=== PATIENT | male | born 1950 | race Caucasian/White ===

== ENCOUNTER 2024-03-10 09:23 | Emergency (ER) | payer OTHER, SELFPAY ==
[2024-03-10 09:32] VITALS: BP 180/79
[2024-03-10 10:02] VITALS: BP 156/64
--- NOTE | 2024-03-10 10:13 | ED.GENMED ---
History of Present Illness
General
Chief Complaint: Chest Problem
Source: patient
Exam Limitations: none
Time Seen by Provider: 03/10/24 10:05
History of Present Illness
History of Present Illness:
See MDM
Past History
Past History
ED Past Medical History: Arrthythmia (Atrial fib), HTN and Other (Kidney stones)
ED Past Surgical History: Cardiac (Ablation X2) and Cholecystectomy
Social History
Tobacco: Former smoker
Alcohol: Occasional
Drug: None
Personal:
Living: with family
Phy Exam
Physical Exam
Physical Exam:
See MDM
Course
Orders/Labs/Results
Orders:
Orders
03/10/24 09:29
EKG [Electrocardiogram (*1)] Urgent
Reason for Study: Atrial Fibrillation
EKG- Treatment ONCE
03/10/24 10:04
CMP [Comprehensive Metabolic Panel] Urgent
Complete Blood Count/With Diff Urgent
Lipase Urgent
Troponin I Urgent
Abnormal Lab Results
03/10/24
10:04
MPV 10.6 H fL
(7.4-10.4)
Absolute Neuts (auto) 7.1 H 10^3/uL
(1.4-6.5)
Absolute Lymphs (auto) 0.9 L 10^3/uL
(1.2-3.4)
Absolute Monos (auto) 0.7 H 10^3/uL
(0.1-0.6)
Neutrophils % 79.7 H %
(42.2-75.2)
Lymphocytes % 10.0 L %
(20.5-51.1)
Glucose 149 H mg/dl
(70-99)
03/10/24 10:04
03/10/24 10:04
Vital Signs
Initial and Last Documented VS:
Initial Vital Signs
Temp Pulse Resp BP Pulse Ox
99.7 F 68 18 180/79 97
03/10/24 09:32 03/10/24 09:32 03/10/24 09:32 03/10/24 09:32 03/10/24 09:32
Last Documented Vital Signs
Temp Pulse Resp BP Pulse Ox
99.7 F 59 14 165/77 95
03/10/24 09:32 03/10/24 11:15 03/10/24 11:15 03/10/24 11:05 03/10/24 11:15
MDM/Problems Addressed
Differential Diagnosis Includes:
HPI and MDM Narrative:
73-year-old male presenting with resolved flushed sensation in his face. This occurred a few hours ago. Patient states he woke up and took his normal medications. He was sitting at his desk and felt a flushed sensation and both cheeks. Family at
bedside indicate that he was bright red. This was associated with a mild chest discomfort. The chest discomfort did not get worse with exertion. Patient states he went to make sure he was not in A-fib. Patient currently in a sinus rhythm but
also symptom-free.
I question whether or not patient was on hydralazine. Patient does acknowledge that he has had the same hydralazine dosage for many years.
Will obtain basic blood work to rule out any electrolyte abnormalities or cardiac events. I discussed having his blood pressure medications reassessed and keep an eye if this is a recurring issue after hydralazine. I also discussed less common and
rare disorders such as pheochromocytoma and to have this evaluated by PCP.
Physical exam
General: Well appearing and non-toxic
HEENT: protecting airway
Neck: appears supple
CV: No evidence of cyanosis. Regular rate and rhythm
Resp: No accessory muscle use. Lungs clear
Abd: Non-distended
Extremities: No deformities
Neuro: alert
Psych: Normal affect
Skin: Intact
Problems Addressed including Acute and Chronic Conditions affecting care:
1. Resolved facial flushing
Acuity: acute
Prognosis: stable
Details: Likely adverse medication reaction. No evidence of A-fib. Will obtain basic blood
Updates
Patient has remained in sinus rhythm here. We discussed keeping an eye on his symptoms and see if there is a pattern with hydralazine intake. Discussed outpatient follow-up
Differential Diagnosis (but not limited to): Hydralazine side effect, pheochromocytoma, A-fib
Testing considered: D-dimer but he is on Eliquis
Drug therapy (if applicable): OTC meds, please see d/c instruction regarding Rx drugs
Amount and/or Complexity of Data Reviewed
Clinical info obtained from: Patient
External data reviewed: N/A
Labs I independently reviewed (but not limited to): Troponin normal
Radiology: N/A
Pulse Ox: not hypoxic
EKG independently reviewed: Sinus rhythm, normal axis, no STEMI
Parts Runner: Sinus rhythm
Critical Care: N/A
Risk of Complication:
Social Determinants of health: Good social support
Discussed with other providers: N/A
Escalation of Care includes Admit/Obs: After being observed in the Emergency Department, pt stable for discharge.
Occasional wrong word or 'sound a like' substitutions may have occurred due to the inherent limitations of voice recognition software. Read the chart carefully and recognize, using context, where substitutions have occurred.
*Critical Care Note
Total Time (30-74mins, 75-104mins- exclusive of procedures): Not Applicable
ED Attending Note
-
Portions of this chart may have been created with voice recognition software.� Occasional wrong word or��sound alike� substitutions may have occurred due to the inherent limitations of voice recognition software.
Discharge Plan
Departure
Patient Disposition: Home (Routine Discharge)
Date of Disposition: 03/10/24
Time of Disposition: 11:48
Patient with high blood pressure during this ER visit?: Yes
Discharge Problem:
Facial flushing
Prescriptions:
No Action
albuterol sulfate [ProAir RespiClick] 90 MCG aerosol powdr breath activated
90 mcg IH R BIDPRN PRN (Reason: sob)
furosemide 40 MG tablet
80 mg PO DAILY
nystatin 1 APPLIC cream
1 applic TP DAILYPRN PRN (Reason: althletes foot)
valsartan [Diovan] 320 MG tablet
320 mg PO HS
hydralazine 50 MG tablet
50 mg PO TID
fluticasone propionate 1 SPRAY spray,suspension
1 spray intranasal DAILYPRN PRN (Reason: congestion)
escitalopram oxalate 10 MG tablet
10 mg PO HS
metoprolol succinate 100 MG tablet extended release 24 hr
50 mg PO HS
diltiazem HCl 120 MG capsule,extended release 24hr
120 mg PO DAILY 0RF
Eliquis:
5 mg PO BID
potassium chloride [Klor-Con M20] 20 MEQ tablet,ER particles/crystals
20 meq PO BID Qty: 60 11RF
Rx Instructions:
Increase potassium to 20 meq twice a day
dofetilide 250 MCG capsule
250 mcg PO Q12 Qty: 60 11RF
Referrals:
Steven Genao Jr., DO [Family Provider] -
Activity Restrictions/Additional Instructions:
Please return for any worsening symptoms.
You may return at any time if you have further concerns.
Please follow up with your doctor at the first available appointment, preferably this week. Please discuss your symptoms with your doctor and try and find a pattern. It is possible that hydralazine could be the issue. Although less likely, there
are other diagnoses such as something called pheochromocytoma. Please talk to your doctor about your symptoms and if the symptoms keep happening.
Thank you for choosing [facility].
Interventions
Interventions:
*Risk Screen - Suicide Last Done: 03/10/24 09:51
*General Assessment Last Done: 03/10/24 09:52
*Neglect/Abuse Screening Last Done: 03/10/24 09:51
ED- Fall Risk Assessment Last Done: 03/10/24 10:11
ED- Cardiac Assessment Last Done: 03/10/24 10:11
ED- Pulmonary Assessment Last Done: 03/10/24 10:11
Discharge Date and Time
Print Language: SERBIAN
[2024-03-10 10:32] LABS: ALT (SGPT) 21 U/L (0-50); AST (SGOT) 27 U/L (17-59); Albumin 4.5 g/dl (3.5-5.0); Alkaline Phosphatase 66 U/L (38-126); Blood Urea Nitrogen 19 mg/dl (9-20); Calcium 9.1 mg/dl (8.4-10.2); Carbon Dioxide 30 mmol/L (22-30); Chloride 102 mmol/L (98-107); Glucose 149 mg/dl (70-99); Lipase 126 U/L (23-300); Potassium 3.6 mmol/L (3.5-5.1); Sodium 140 mmol/L (135-145); Total Bilirubin 1.2 mg/dl (0.2-1.3); Total Protein 7.2 g/dl (6.3-8.2); eGFR > 60.00
[2024-03-10 10:37] LABS: Troponin I < 0.012 ng/ml
[2024-03-10 11:05] VITALS: BP 165/77
[2024-03-10 11:23] LABS: % Basophils 0.8 % (0-2); % Eosinophils 0.8 % (0-6); % Immature Granulocytes 0.5 % (0-0.5); % Monocytes 8.2 % (1.7-9.3); % Neutrophils 79.7 % (42.2-75.2); Absolute Basophils 0.1 10^3/uL (0-0.2); Absolute Eosinophils 0.1 10^3/uL (0-0.7); Absolute Lymphocytes 0.9 10^3/uL (1.2-3.4); Absolute Monocytes 0.7 10^3/uL (0.1-0.6); Absolute Neutrophils 7.1 10^3/uL (1.4-6.5); Hematocrit 44.6 % (39.0-52.0); Hemoglobin 15.6 g/dL (13.0-18.0); Mean Corpuscular Hgb 29.3 pg (27.0-31.0); Mean Corpuscular Volume 83.8 fL (80.0-94.0); Mean Platelet Volume 10.6 fL (7.4-10.4); Nucleated Red Blood Cells % 0 % (-); Platelet Count 261 10^3/uL (130-400); Red Blood Cell Count 5.32 10^6/uL (4.70-6.10); Red Cell Dist. Width 13.2 % (11.5-14.5); White Blood Cell Count 8.9 10^3/uL (4.8-10.8)
== END 2024-03-10 11:53 | disposition home or self-care (01) ==
LOC: EMR 09:23
PROVIDERS: EMERGENCY PHYSICIAN Student in an Organized Health Care Education/Training Program; FAMILY PHYSICIAN Family Medicine
DX: R23.2 Flushing (principal); R07.89 Other chest pain; I48.91 Unspecified atrial fibrillation; I10 Essential (primary) hypertension; Z79.01 Long term (current) use of anticoagulants; Z87.442 Personal history of urinary calculi; Z87.891 Personal history of nicotine dependence; Z90.49 Acquired absence of other specified parts of digestive tract; Z88.8 Allergy status to other drugs, medicaments and biological substances; Z91.041 Radiographic dye allergy status
CPT/HCPCS: 99283; 80053; 83690; 84484; 85025; 93005

== ENCOUNTER → 2024-03-29 07:13 | Outpatient (REF) | payer OTHER, SELFPAY ==
[2024-03-29 10:14] LABS: ALT (SGPT) 20 U/L (0-50); AST (SGOT) 25 U/L (17-59); Albumin 3.9 g/dl (3.5-5.0); Alkaline Phosphatase 63 U/L (38-126); Blood Urea Nitrogen 15 mg/dl (9-20); Calcium 9.4 mg/dl (8.4-10.2); Carbon Dioxide 30 mmol/L (22-30); Chloride 102 mmol/L (98-107); Glucose 105 mg/dl (70-99); HDL Cholesterol 38 mg/dl; LDL Cholesterol, Calculated 69 mg/dl; Sodium 139 mmol/L (135-145); Total Bilirubin 1.5 mg/dl (0.2-1.3); Total Cholesterol 116 mg/dl (50-199); Total Protein 6.4 g/dl (6.3-8.2); Triglyceride 48 mg/dl (10-149); Very Low Density Lipoprotein 9 mg/dl (0-30); eGFR > 60.00
[2024-03-29 15:29] LABS: Glycohemoglobin (HgbA1c) 5.9 % (4.0-5.6)
== END ==
LOC: REG 07:13
PROVIDERS: ATTENDING PHYSICIAN Family Medicine
DX: R73.03 Prediabetes (principal); E78.2 Mixed hyperlipidemia
CPT/HCPCS: 36415; 80053; 80061; 83036

== ENCOUNTER → 2024-04-21 06:36 | Outpatient (REF) | payer OTHER, SELFPAY ==
[2024-04-21 08:51] LABS: TSH Reflex To Free T4 9.03 uIU/ml (0.47-4.68)
[2024-04-21 09:21] LABS: Free T4 0.78 ng/dl (0.78-2.19)
== END ==
LOC: REG 06:36
PROVIDERS: ATTENDING PHYSICIAN Family Medicine
DX: I48.0 Paroxysmal atrial fibrillation (principal); I10 Essential (primary) hypertension; R23.2 Flushing
CPT/HCPCS: 36415; 82384; 83835; 84439; 84443

== ENCOUNTER → 2024-05-09 15:37 | Outpatient (REF) | payer OTHER, SELFPAY | LOC: HWRAD 15:37 | PROVIDERS: ATTENDING PHYSICIAN Internal Medicine | DX: R41.3 Other amnesia (principal) | CPT/HCPCS: 70450 ==

== ENCOUNTER → 2024-05-10 07:02 | Outpatient (REF) | payer OTHER, SELFPAY ==
[2024-05-10 08:58] LABS: % Basophils 1.1 % (0-2); % Eosinophils 3.7 % (0-6); % Immature Granulocytes 0.9 % (0-0.5); % Lymphocytes 21.5 % (20.5-51.1); % Monocytes 11.7 % (1.7-9.3); % Neutrophils 61.1 % (42.2-75.2); Absolute Basophils 0.1 10^3/uL (0-0.2); Absolute Eosinophils 0.3 10^3/uL (0-0.7); Absolute Immature Granulocytes 0.1 10^3/uL (0-0.05); Absolute Lymphocytes 1.5 10^3/uL (1.2-3.4); Absolute Monocytes 0.8 10^3/uL (0.1-0.6); Absolute Neutrophils 4.3 10^3/uL (1.4-6.5); Hematocrit 41.4 % (39.0-52.0); Hemoglobin 14.1 g/dL (13.0-18.0); Mean Corp Hgb Conc. 34.1 g/dL (33.0-37.0); Mean Corpuscular Hgb 29.2 pg (27.0-31.0); Mean Corpuscular Volume 85.7 fL (80.0-94.0); Mean Platelet Volume 10.3 fL (7.4-10.4); Nucleated Red Blood Cells % 0 % (-); Platelet Count 232 10^3/uL (130-400); Red Blood Cell Count 4.83 10^6/uL (4.70-6.10); Red Cell Dist. Width 13.2 % (11.5-14.5)
[2024-05-10 09:47] LABS: TSH Reflex To Free T4 6.57 uIU/ml (0.47-4.68)
[2024-05-10 10:14] LABS: Free T4 0.85 ng/dl (0.78-2.19)
[2024-05-10 10:23] LABS: Folate 11.5 ng/ml (2.76-20); Vitamin B12 262 pg/ml (239-931)
[2024-05-11 20:21] LABS: Thyroglobulin Antibodies <0.9 IU/mL (0.0-4.0); Thyroid Peroxidase Ab (TPO) <0.3 IU/mL (0.0-9.0)
== END ==
LOC: REG 07:02
PROVIDERS: ATTENDING PHYSICIAN Family Medicine
DX: R41.3 Other amnesia (principal); I48.0 Paroxysmal atrial fibrillation; D68.69 Other thrombophilia; R79.89 Other specified abnormal findings of blood chemistry; G47.33 Obstructive sleep apnea (adult) (pediatric); I50.32 Chronic diastolic (congestive) heart failure; F32.A Depression, unspecified; E53.8 Deficiency of other specified B group vitamins
CPT/HCPCS: 36415; 82607; 82746; 84439; 84443; 85025; 86376; 86800

== ENCOUNTER → 2024-08-09 07:03 | Outpatient (REF) | payer OTHER, SELFPAY ==
[2024-08-09 09:18] LABS: Vitamin B12 425 pg/ml (239-931)
== END ==
LOC: REG 07:03
PROVIDERS: ATTENDING PHYSICIAN Internal Medicine; FAMILY PHYSICIAN Family Medicine
DX: E53.8 Deficiency of other specified B group vitamins (principal)
CPT/HCPCS: 36415; 82607

== ENCOUNTER → 2025-04-04 07:06 | Outpatient (REF) | payer OTHER, SELFPAY ==
[2025-04-04 07:48] LABS: Hematocrit 42.6 % (39.0-52.0); Hemoglobin 14.5 g/dL (13.0-18.0); Mean Corp Hgb Conc. 34.0 g/dL (33.0-37.0); Mean Corpuscular Volume 86.6 fL (80.0-94.0); Nucleated Red Blood Cells % 0 % (-); Platelet Count 209 10^3/uL (130-400); Red Cell Dist. Width 13.1 % (11.5-14.5)
[2025-04-04 08:16] LABS: ALT (SGPT) 24 U/L (0-50); AST (SGOT) 25 U/L (17-59); Albumin 4.0 g/dl (3.5-5.0); Alkaline Phosphatase 60 U/L (38-126); Blood Urea Nitrogen 12 mg/dl (9-20); Calcium 9.2 mg/dl (8.4-10.2); Carbon Dioxide 30 mmol/L (22-30); Chloride 107 mmol/L (98-107); Glucose 115 mg/dl (70-99); HDL Cholesterol 36 mg/dl; LDL Cholesterol, Calculated 86 mg/dl; Potassium 4.0 mmol/L (3.5-5.1); Sodium 142 mmol/L (135-145); Total Protein 6.5 g/dl (6.3-8.2); Very Low Density Lipoprotein 9 mg/dl (0-30); eGFR > 60.00
[2025-04-04 09:00] LABS: Glycohemoglobin (HgbA1c) 6.0 % (4.0-5.6)
== END ==
LOC: REG 07:06
PROVIDERS: ATTENDING PHYSICIAN Family Medicine
DX: R73.03 Prediabetes (principal); E78.2 Mixed hyperlipidemia; E03.8 Other specified hypothyroidism; R53.83 Other fatigue; Z12.5 Encounter for screening for malignant neoplasm of prostate
CPT/HCPCS: 36415; 80053; 80061; 83036; 84153; 84154; 84439; 84443; 85025

== ENCOUNTER 2025-04-27 17:09 | Emergency (ER) | payer OTHER, SELFPAY ==
[2025-04-27] VITALS (17 sets, daily range): BP systolic 99–166; BP diastolic 54–111; BMI 39.1
[2025-04-27 17:49] LABS: Hematocrit 45.0 % (39.0-52.0); Hemoglobin 15.5 g/dL (13.0-18.0); Mean Corp Hgb Conc. 34.4 g/dL (33.0-37.0); Mean Corpuscular Volume 84.4 fL (80.0-94.0); Nucleated Red Blood Cells % 0 % (-); Platelet Count 208 10^3/uL (130-400); Red Cell Dist. Width 13.1 % (11.5-14.5)
--- NOTE | 2025-04-27 17:50 | ED.GENMED ---
History of Present Illness
General
Chief Complaint: Heart Rate Problem
Source: patient and spouse
Time Seen by Provider: 04/27/25 17:38
History of Present Illness
History of Present Illness:
74-year-old male presents to the emergency room complaining of palpitations and rapid heartbeat. He has a history of atrial fibrillation. He is known to Dr. Chaz Burkett. He has had an ablation twice in the past. Last ablation was about 5 years
ago or more. He is prescribed Xarelto. He has been compliant with his Xarelto and has not missed any doses. He denies any chest pain.
Past History
Past History
ED Past Medical History: Arrthythmia (Atrial fib), HTN and Other (Kidney stones)
ED Past Surgical History: Cardiac (Ablation X2) and Cholecystectomy
Social History
Tobacco: Former smoker
Alcohol: Occasional
Drug: None
Personal:
Living: with family
Phy Exam
Physical Exam
Physical Exam:
General: Awake, Alert, Oriented X3. No acute distress.
Vitals: unremarkable
Head: Atraumatic
Eyes: Pupils equal, EOMI
Throat: Airway intact, no exudates
Neck: Trachea midline
Lungs: Clear and equal b/l
Heart: Tachycardic, irregular rate, no murmurs
Abd: Soft, Nontender, No pulsatile mass
Neuro: Nonfocal
Skin: Warm, dry, no rash
Extremities: pulses equal b/l, no edema
Course
Orders/Labs/Results
Orders:
Orders
04/27/25 17:10
ECG [Electrocardiogram (*1)] Urgent
Reason for Study: Atrial Fibrillation
EKG- Treatment ONCE
04/27/25 17:24
IV Insert/Care/Rem.- Treatment PRN
04/27/25 17:41
EKG [Electrocardiogram (*1)] Urgent
Reason for Study: Atrial Flutter
04/27/25 17:42
EKG- Treatment ONCE
Basic Metabolic Panel Urgent
Complete Blood Count/With Diff Urgent
04/27/25 18:22
Propofol [Diprivan] 40 ml .ROUTE .STK-MED
Abnormal Lab Results
04/27/25
17:42
Lymphocytes % 19.7 L %
(20.5-51.1)
Chloride 109 H mmol/L
(98-107)
Glucose 130 H mg/dl
(70-99)
04/27/25 17:42
04/27/25 17:42
Vital Signs
Initial and Last Documented VS:
Initial Vital Signs
Temp Pulse Resp BP Pulse Ox
98.1 F 104 19 157/111 97
04/27/25 17:13 04/27/25 17:13 04/27/25 17:13 04/27/25 17:13 04/27/25 17:13
Last Documented Vital Signs
Temp Pulse Resp BP Pulse Ox
98.2 F 64 19 106/67 96
04/27/25 19:30 04/27/25 19:45 04/27/25 19:45 04/27/25 19:30 04/27/25 19:45
Procedures
Cardioversion
Indication:: Afib
Synchronized?: Yes
Energy Used: 200 joules
Successful?: Yes
ASA Risk Score: Class II
Any reaction or bad outcome to prior sedation/anesthesia?: No history of a reaction
Sedation level to be attained: moderate
Chart and allergies reviewed: Yes
Patient reassessed prior to sedation: Yes
Time out completed at (validating right patient & procedure): 19:43
History of difficult intubation: No
Airway free of obstruction: Yes
Patient has a gag reflex: Yes
Patient is able to open mouth: Yes
Patient has no dentures: Yes
Patient has no loose teeth: Yes
Medication administered by Provider during Moderate Sedation: IV Propofol (mg)
Total dose administered: 80
Time drug administered: 19:44
Start Time: 19:44
Stop Time: 19:54
MDM/Problems Addressed
Differential Diagnosis Includes:
A flutter, atrial fibrillation, SVT with frequent PACs
MDM/Problems Addressed:
Patient presents with palpitations and tachycardia. EKG shows A-fib and a flutter. Patient takes Xarelto and has been compliant with it. He is sure he has not missed any doses. Therefore we proceeded to cardioversion. Patient tolerated the
procedure well. He cardioverted to normal sinus rhythm. He returned to baseline after sedation and was stable for discharge.
Chronic conditions affecting care: Arrhythmia (Atrial fibrillation)
*Pulse Oximetry
SaO2: 97
Oxygen Mode of Delivery: Room air
Patient hypoxic: no
*EKG
Interpreted by ED Provider?: Yes
Interpretation: normal
Heart Rate: 143
Rate: tachycardiac
Rhythm: a-fib
Donald: normal axis
Interval: normal interval
QRS Pattern: normal QRS
Ischemia: non-specific ST changes
*Water Resources Engineer Interpretation
Rate: tachycardiac
Interpretation: abnormal
Heart Rate: 143
Rhythm: a-fib
*Critical Care Note
Total Time (30-74mins, 75-104mins- exclusive of procedures): Not Applicable
ED Attending Note
-
Portions of this chart may have been created with voice recognition software.� Occasional wrong word or��sound alike� substitutions may have occurred due to the inherent limitations of voice recognition software.
Discharge Plan
Departure
Patient Disposition: Home (Routine Discharge)
Date of Disposition: 04/27/25
Time of Disposition: 19:35
Patient with high blood pressure during this ER visit?: No
Condition: Good
Discharge Problem:
Paroxysmal A-fib
Instructions: Atrial fibrillation (DC), Sedation for procedures in adults - ED (DC)
Prescriptions:
No Action
albuterol sulfate [ProAir RespiClick] 90 MCG aerosol powdr breath activated
90 mcg IH R BIDPRN PRN (Reason: sob)
furosemide 40 MG tablet
80 mg PO DAILY
nystatin 1 APPLIC cream
1 applic TP DAILYPRN PRN (Reason: althletes foot)
valsartan [Diovan] 320 MG tablet
320 mg PO HS
hydralazine 50 MG tablet
50 mg PO TID
fluticasone propionate 1 SPRAY spray,suspension
1 spray intranasal DAILYPRN PRN (Reason: congestion)
escitalopram oxalate 10 MG tablet
10 mg PO HS
metoprolol succinate 100 MG tablet extended release 24 hr
50 mg PO HS
diltiazem HCl 120 MG capsule,extended release 24hr
120 mg PO DAILY 0RF
Eliquis:
5 mg PO BID
potassium chloride [Klor-Con M20] 20 MEQ tablet,ER particles/crystals
20 meq PO BID Qty: 60 11RF
Rx Instructions:
Increase potassium to 20 meq twice a day
dofetilide 250 MCG capsule
250 mcg PO Q12 Qty: 60 11RF
Referrals:
Chaz Burkett MD [Active, Cardiology]
UNKNOWN - PT DOES,NOT KNOW [Family Provider]
Interventions
Interventions:
*Risk Screen - Suicide Last Done: 04/27/25 17:17
*General Assessment Last Done: 04/27/25 17:17
*Neglect/Abuse Screening Last Done: 04/27/25 17:17
*ED- Fall Risk Assessment Last Done: 04/27/25 17:44
*ED COVID-19 Vaccine History Last Done: 04/27/25 17:44
*Nursing Disposition Last Done: 04/27/25 19:56
ED- Cardiac Assessment Last Done: 04/27/25 17:44
ED- Pulmonary Assessment Last Done: 04/27/25 17:44
Discharge Date and Time
Discharge Date/Time: 04/27/25 20:08
Print Language: ROMANIAN
[2025-04-27 18:11] LABS: Blood Urea Nitrogen 14 mg/dl (9-20); Calcium 9.5 mg/dl (8.4-10.2); Carbon Dioxide 24 mmol/L (22-30); Chloride 109 mmol/L (98-107); Estimated Creatinine Clearance 91 ml/min; Glucose 130 mg/dl (70-99); Sodium 140 mmol/L (135-145); eGFR > 60.00
== END 2025-04-27 20:08 | disposition home or self-care (01) ==
LOC: EMR 17:09
PROVIDERS: EMERGENCY PHYSICIAN Emergency Medicine
DX: I48.0 Paroxysmal atrial fibrillation (principal); I10 Essential (primary) hypertension; Z79.01 Long term (current) use of anticoagulants; Z87.442 Personal history of urinary calculi; Z87.891 Personal history of nicotine dependence; Z90.49 Acquired absence of other specified parts of digestive tract; Z88.8 Allergy status to other drugs, medicaments and biological substances; Z91.041 Radiographic dye allergy status
CPT/HCPCS: 92960; 99285; 99152; 80048; 85025; 93005

== ENCOUNTER → 2025-05-16 07:06 | Outpatient (REF) | payer OTHER, SELFPAY | LOC: RCS 07:06 | PROVIDERS: ATTENDING PHYSICIAN Internal Medicine Cardiovascular Disease; FAMILY PHYSICIAN Family Medicine | DX: I48.0 Paroxysmal atrial fibrillation (principal); I10 Essential (primary) hypertension; I50.32 Chronic diastolic (congestive) heart failure | CPT/HCPCS: 93306 ==

== ENCOUNTER → 2025-05-30 07:05 | Outpatient (REF) | payer OTHER, SELFPAY | LOC: REG 07:05 | PROVIDERS: ATTENDING PHYSICIAN Family Medicine | DX: R97.20 Elevated prostate specific antigen [PSA] (principal) | CPT/HCPCS: 36415; 84153; 84154 ==

== ENCOUNTER → 2025-06-06 07:26 | Outpatient (REF) | payer OTHER, SELFPAY | LOC: RAD 07:26 | PROVIDERS: ATTENDING PHYSICIAN Nurse Practitioner Adult Health; FAMILY PHYSICIAN Family Medicine | DX: M54.50 Low back pain, unspecified (principal) | CPT/HCPCS: 72110 ==

== ENCOUNTER → 2025-07-17 11:11 | Outpatient (REF) | payer OTHER, SELFPAY | LOC: CLAB 11:11 | PROVIDERS: ATTENDING PHYSICIAN Nurse Practitioner Adult Health | DX: R39.9 Unspecified symptoms and signs involving the genitourinary system (principal) | CPT/HCPCS: 87086 ==

== ENCOUNTER → 2025-07-18 07:25 | Outpatient (REF) | payer OTHER, SELFPAY | LOC: RAD 07:25 | PROVIDERS: ATTENDING PHYSICIAN Nurse Practitioner Adult Health; FAMILY PHYSICIAN Family Medicine | DX: M54.6 Pain in thoracic spine (principal) | CPT/HCPCS: 72072 ==

== ENCOUNTER → 2025-08-07 06:42 | Outpatient (REF) | payer OTHER, SELFPAY ==
[2025-08-07 07:34] LABS: Hematocrit 43.6 % (39.0-52.0); Hemoglobin 14.3 g/dL (13.0-18.0); Mean Corp Hgb Conc. 32.8 g/dL (33.0-37.0); Mean Corpuscular Volume 90.1 fL (80.0-94.0); Nucleated Red Blood Cells % 0 % (-); Platelet Count 216 10^3/uL (130-400); Red Cell Dist. Width 12.9 % (11.5-14.5)
[2025-08-07 07:56] LABS: ALT (SGPT) 28 U/L (0-50); AST (SGOT) 30 U/L (17-59); Albumin 4.0 g/dl (3.5-5.0); Alkaline Phosphatase 62 U/L (38-126); Blood Urea Nitrogen 16 mg/dl (9-20); Calcium 9.5 mg/dl (8.4-10.2); Carbon Dioxide 30 mmol/L (22-30); Chloride 103 mmol/L (98-107); Glucose 113 mg/dl (70-99); HDL Cholesterol 38 mg/dl; LDL Cholesterol, Calculated 86 mg/dl; Potassium 4.3 mmol/L (3.5-5.1); Sodium 138 mmol/L (135-145); Total Protein 7.0 g/dl (6.3-8.2); Very Low Density Lipoprotein 11 mg/dl (0-30); eGFR > 60.00
[2025-08-07 11:25] LABS: Glycohemoglobin (HgbA1c) 6.1 % (4.0-5.9)
[2025-08-10 08:16] LABS: Thyroglobulin Antibodies <1.5 IU/mL (0.0-4.0)
== END ==
LOC: REG 06:42
PROVIDERS: ATTENDING PHYSICIAN Family Medicine
DX: R73.03 Prediabetes (principal); E78.2 Mixed hyperlipidemia; E03.8 Other specified hypothyroidism; R53.83 Other fatigue
CPT/HCPCS: 36415; 80053; 80061; 83036; 84443; 85025; 86376; 86800